=== PATIENT | male | born 1955 | race African-American/Black ===

== ENCOUNTER → 2019-05-11 | Outpatient (CLI) | payer BC ==
[~2019-05-11] MED LIST: CONTRAST GIVEN. MC PRN; IOHEXOL 300 MG/ML 100ML VIAL. IV ONE; LOSA1TAB25 PO
--- NOTE | 2019-05-11 17:32 | KCIC ---
CT scan of the neck without and with contrast 05/11/2019 CLINICAL HISTORY: Chronic right neck swelling. TECHNIQUE: Unenhanced, contiguous, 3 mm axial sections were obtained through the neck without and with use of intravenous contrast. 95 cc of Omnipaque 300 were administered intravenously during this examination. One or more of the following individualized dose reduction techniques were utilized for this study: 1. Automated exposure control. 2. Adjustment of the mA and/or kV according to patient size. 3. Use of iterative reconstruction technique. FINDINGS: The patient is post resection of a portion of the medial naik of both maxillary sinuses to include the uncinate processes. The patient appears to be resection portion ethmoid air cells. Mild mucosal thickening is involving both maxillary sinuses. There are are small bilateral radha bullosae, right greater than left. The mastoid air cells and middle ear cavities are well aerated and are clear. The unenhanced images demonstrate two calcifications within the anterior right parotid gland which measure 2 to 3 mm in size. No calcification is seen involving the left parotid gland. Neither parotid duct is enlarged. No calculus is seen within either parotid duct. Atherosclerotic calcification is seen in the region carotid bifurcations. On the postcontrast images the mucosal pattern of the nasopharynx, oropharynx, hypopharynx and larynx is within normal limits. The submandibular glands and thyroid gland are within normal limits. Both parotid glands are enlarged and heterogeneous. No focal abnormality of the parotid gland is seen. No cervical lymphadenopathy is noted. No abnormal fluid collection is seen. Degenerative changes are seen involving the uncovertebral and facet joints throughout the mid and lower cervical disc spaces. IMPRESSION: Both parotid glands are enlarged and heterogeneous which could reflect an inflammatory or infectious process. Two small calcifications are seen within the anterior right parotid gland. No calculus is seen involving either parotid duct. Electronically signed by: Gavin Eaton MD (05/11/2019 5:29 PM) [id number]
== END | disposition home or self-care (01) ==
LOC: KCIC CT 10:08
DX: K11.1 Hypertrophy of salivary gland (principal); J34.89 Other specified disorders of nose and nasal sinuses; I10 Essential (primary) hypertension; J45.909 Unspecified asthma, uncomplicated
CPT/HCPCS: 70492; Q9967

== ENCOUNTER → 2019-06-01 | Outpatient (CLI) | payer BC ==
[~2019-06-01] MED LIST changes: -CONTRAST GIVEN. MC PRN; -IOHEXOL 300 MG/ML 100ML VIAL. IV ONE
--- NOTE | 2019-06-01 17:19 | RAD ---
EXAM: 3 views right knee DATE: 06/01/2019 12:00 AM INDICATION: PRIMARY OSTEOARTHRITIS OF RIGHT KNEE COMPARISON: No Prior FINDINGS: AP, oblique and lateral views of the right knee were submitted for evaluation. There is no evidence for acute fracture or dislocation. Decreased bone mineral density. No knee joint effusion. Joint spaces are grossly preserved. Mildly prominent tibial spine osteophytes are seen. Proximal tibiofibular degenerative changes are seen. IMPRESSION: 1. Within the constraints of osteopenia, no acute fracture or dislocation. 2. Mildly prominent tibial spine osteophytes are seen. On the submitted images knee joint spaces are grossly preserved. 3. Proximal tibiofibular degenerative changes are seen. Electronically signed by: Ravinder Crisostomo MD (06/01/2019 5:17 PM) [facility] [place]
== END | disposition home or self-care (01) ==
LOC: RAD 10:24
PROVIDERS: ATTEND Physician Assistant
DX: M17.11 Unilateral primary osteoarthritis, right knee (principal); M25.761 Osteophyte, right knee; M85.88 Other specified disorders of bone density and structure, other site
CPT/HCPCS: 73562